=== PATIENT | male | born 1955 | race American Indian/Alaskan Native ===

== ENCOUNTER 2019-05-06 06:14 | Day surgery (SDC) | payer OTHER ==
[2019-05-06] MEDS ORDERED: ceFAZolin/STERILE WATER 2 GM/20 ML SYRINGE IV NR (07:00)
[2019-05-06] MEDS ORDERED: GENTAMICIN 40 MG/ML VIAL 2 ML IV SCH (07:30)
[2019-05-06] MEDS ORDERED: LACTATED RINGERS 1,000 ML ONE (07:44)
[2019-05-06] MEDS ORDERED: GENTAMICIN/NS 120MG/100ML 120 MG/100 ML BAG IV NR (08:00)
[2019-05-06] MEDS ORDERED: LACTATED RINGERS 1,000 ML IV SCH (08:00)
[2019-05-06] MEDS ORDERED: propofoL 200 MG/20 ML VIAL IV ONE (08:31)
[2019-05-06] MEDS ORDERED: LIDOCAINE MPF (2%) 20 MG/1 ML VIAL 5 ML ONE (08:31)
[2019-05-06] MEDS ORDERED: fentaNYL 100 MCG/2 ML INJ ONE (08:31)
[2019-05-06] MEDS ORDERED: fentaNYL 100 MCG/2 ML INJ IV PRN (08:35)
--- NOTE | 2019-05-06 08:35 | Anesthesia Day of Surgery ---
Anesthesia Day of Surgery - Day of Surgery Patient Examined: Yes Patient H&P Reviewed: Yes Patient is NPO: Yes
--- NOTE | 2019-05-06 08:35 | Anesthesia Consultation ---
Anesthesia Consult and Med Hx Date of service: 05/06/19 - Airway Anesthetic Teeth Evaluation: Good, Crowns ROM Head & Neck: Adequate Mental/Hyoid Distance: Adequate Mallampati Class: Class II Intubation Access Assessment: Probably Good - Pulmonary Exam CTA: Yes - Cardiac Exam Cardiac Exam: RRR - Pre-Operative Health Status ASA Pre-Surgery Classification: ASA1 Proposed Anesthetic Plan: General - Pulmonary Hx Smoking: No Hx Respiratory Symptoms: No Hx Sleep Apnea: No (MAGALI PRE SCREEN LOW RISK) - Cardiovascular System Hx Hypertension: No Hx Heart Attack/AMI: No Hx Percutaneous Transluminal Coronary Angioplasty (PTCA): No - Central Nervous System CVA: No - Gastrointestinal Hx Gastroesophageal Reflux Disease: No - Endocrine Hx Renal Disease: No Hx Liver Disease: No Hx Insulin Dependent Diabetes: No Hx Non-Insulin Dependent Diabetes: No Hx Thyroid Disease: No - Other Systems Hx Obesity: No - Additional Comments Anesthesia Medical History Comments: No hx anesthetic complications. Recently had tendon repair in left foot and wears boot which he removes for showers and sleeping. Normal flexion/extension at ankle without pain. Patient discussed with surgeon and appears safe for lithotomy positioning.
[2019-05-06] MEDS ORDERED: dexAMETHasone 20 MG/5 ML VIAL ONE (09:00)
[2019-05-06] MEDS ORDERED: MIDAZOLAM 2 MG/2 ML INJ IV NR (09:00)
[2019-05-06] MEDS ORDERED: ONDANSETRON 4 MG/2 ML INJ ONE (09:46)
[2019-05-06] MEDS ORDERED: WATER FOR IRRIG STERILE 2000 ML IR ONE (09:47)
--- NOTE | 2019-05-06 09:58 | Short Stay Summary ---
Short Stay Documentation Date of service: 05/06/19 Narrative H&P: 63 yr old male with BPH & psa 12 MRI prostate revealed left lesion - History H&P: obtained from office Past Medical History: other (BPH) Social history: no significant social history, - Allergies and Medications Current Medications: Allergies shellfish derived Allergy (Verified 04/26/19 11:48) Nausea Home Medications Medication Instructions Recorded Confirmed Last Taken Type Aspirin 325 mg PO PRN PRN 04/26/19 05/06/19 05/01/19 History Active Medications Cefazolin Sodium (Ancef/Sterile Water 2 Gm/20 Ml) 2 gm IV PREOP NR Stop: 05/06/19 16:00 Fentanyl (Sublimaze) 50 mcg IV Q5MIN PRN PRN Reason: Pain , Severe (7-10) Gentamicin Sulfate/Sodium Chloride (Gentamicin/Ns 120mg/100ml) 120 mg in 100 mls @ 200 mls/hr IV PREOP NR Stop: 05/06/19 16:00 Lactated Ringer's (Lactated Ringers) 1,000 mls @ 100 mls/hr IV DIRECT AUGUST Last Admin: 05/06/19 08:10 Dose: 100 mls/hr Documented by: Midazolam HCl (Versed) 2 mg IV PREOP NR Stop: 05/06/19 23:59 Last Admin: 05/06/19 08:52 Dose: 2 mg Documented by: - Physical exam General appearance: no acute distress, well-nourished Integumentary: no rash, no growths HEENT: Atraumatic, PERRLA, EOMI Lungs: Clear to auscultation Breasts: normal Heart: Regular rate, No murmurs Gastrointestinal: normal Male Genitourinary: normal Extremities: no ischemia, No edema Neurological: Normal gait - Brief post op/procedure progress note Date of procedure: 05/06/19 Pre-op diagnosis: BPH, psa 12 Post-op diagnosis: same Procedure: cysto, rpg, pus 20cc, 12 core bx & bx left lesion Anesthesia: GETA Surgeon: ARIANA BARKER Pathology: list (12 core & left lesion) Specimen disposition: to lab Condition: stable - Hospital course Hospital course: ultram & bactrim on chart - Disposition Disposition: TO HOME OR SELFCARE Short Stay Discharge Plan Follow up with: ARIANA EUCEDA MD [Primary Care Provider] - 7 Days
--- NOTE | 2019-05-06 10:27 | Operative Report ---
PREOPERATIVE DIAGNOSES: Benign prostatic hypertrophy, elevated PSA of 12. POSTOPERATIVE DIAGNOSIS: Benign prostatic hypertrophy, elevated PSA of 12. PROCEDURE: Cystoscopy, bilateral retrograde pyelograms, transrectal ultrasound (20 mL gram gland) and 12-core biopsy of prostate with left prostatic lesion. SURGEON: Toni Murillo MD ANESTHESIA: General. ESTIMATED BLOOD LOSS: Minimal. FLUIDS: Crystalloid. COMPLICATIONS: No complications. INDICATIONS: This 63-year-old gentleman has been seen in the office for several years for BPH and erectile dysfunction. He has been on Flomax. However, recently, he had an elevated PSA. Biopsy in the past was negative. Recent MRI suggested a left-sided prostatic lesion. He presents now for surgical intervention. DESCRIPTION OF PROCEDURE: The patient was taken to the operative suite, placed in a supine position. After adequate general anesthesia, placed in a dorsal lithotomy position, prepped and draped in a sterile fashion. Pancystourethroscopy was performed with 22-Micronesian Storz cystoscope, no urethral abnormalities. His prostate did display some mild trilobar obstruction. His bladder, no tumors or stones were noted. Mild trabeculation. Both ureteral orifices in normal position. Bilateral retrograde pyelograms were obtained with an 8-Micronesian Donna catheter and 8 mL of contrast. No filling defects or obstruction, right side, the patient had a bifid right collecting system. Next, using a transrectal prostate ultrasound, sagittal and transverse images were taken. The patient was noted to have a 25 gram gland. 12-core biopsy was performed without difficulty. On ultrasound, he was noted to have small hyperechoic lesion on the left side that was additional cores were taken. Rectal exam was benign. Bladder was drained. He was extubated and taken to recovery room. He will go home on Bactrim and Ultram. JOB# [id number] [facility]
[2019-05-06 10:37] VITALS: BP 105/75
--- NOTE | 2019-05-06 12:08 | Ultrasound Report ---
Ultrasound guide intraoperative HISTORY: Elevated PSA levels FINDINGS: Endorectal ultrasound guidance was provided by radiology during prostate biopsy by the urol ogist. 21 ultrasound images are presented demonstrating multiple prostate biopsies. Please correlate with the procedural report as needed. IMPRESSION: Successful ultrasound-guided prostate biopsy. Signer Name: Flash Marcus Jr, MD Signed: 05/06/2019 12:04 PM Workstation Name: [id number]
--- NOTE | 2019-05-06 12:09 | Fluoroscopy Report ---
Fluoroscopy retrograde urography HISTORY: Elevated PSA level FINDINGS: 10 seconds of fluoroscopy time was provided by radiology during retrograde urography by the urologist. 8 fluoroscopic images are presented. No filling defect or abnormal dilatation is identifi ed in either collecting system. 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 Please correlate with the procedural report as needed. Signer Name: Flash Marcus Jr, MD Signed: 05/06/2019 12:05 PM Workstation Name: [id number]
== END 2019-05-06 11:05 | disposition home or self-care (01) ==
LOC: OR 06:14
PROVIDERS: ATTEND Urology
DX: N40.0 Benign prostatic hyperplasia without lower urinary tract symptoms (principal); R97.20 Elevated prostate specific antigen [PSA]; C61 Malignant neoplasm of prostate; K21.9 Gastro-esophageal reflux disease without esophagitis; Z91.013 Allergy to seafood
CPT/HCPCS: 55700; 74420; 76872; 88305; A4217; J0690; J1100; J1580; J2250; J2405; J2704; J3010; J7120; Q9967; 76998

== ENCOUNTER 2019-05-27 07:22 | Outpatient (CLI) | payer OTHER ==
--- NOTE | 2019-05-27 08:47 | Cat Scan Report ---
CT ABDOMEN AND PELVIS WITHOUT CONTRAST HISTORY: Neoplasm prostate. COMPARISON: None TECHNIQUE: Routine abdominal and pelvic CT exam performed without contrast. Lack of intravenous cont rast limits evaluation of the vascular and solid organs.. All CT scans at this location are performed using CT dose reduction for ALARA by means of automated exposure control. FINDINGS: CT ABDOMEN: Lung Bases: Clear. Liver: Normal. Biliary: Normal gallbladder and bile ducts. Spleen: No significant abnormality. Unenlarged. Pancreas: No significant abnormality. Adrenals: No significant abnormality. Kidneys: Normal. The renal collecting systems and ureters are nondilated. Lymphatics: No lymphadenopathy. Vasculature: No significant abnormality. Bowel/Peritoneum: Nonobstructive bowel pattern. Diverticulosis without mesocolonic fat stranding. No free air. No free fluid. Normal appendix. CT PELVIC: : Normal urinary bladder. The prostate measures 4.2 x 3.5 cm. Normal seminal vesicles. The distal u reters are normal. Lymphatics: No lymphadenopathy. Osseous Structures: No suspicious bone lesions. Additional Findings: None IMPRESSION: 1. No significant abnormality. 2. No evidence of metastatic disease. Signer Name: Chuck Best MD Signed: 05/27/2019 8:43 AM Workstation Name: [id number]
--- NOTE | 2019-05-27 11:01 | Nuclear Medicine Report ---
NUCLEAR MEDICINE BONE SCAN, WHOLE BODY INDICATION: Malignant neoplasm of prostate. TECHNIQUE: 26 mCi of Tc-99m MDP were injected IV. Whole body images were obtained. COMPARISON: CT abdomen and pelvis without contrast performed earlier today. FINDINGS: Articular Structures: Uptake along the shoulders, knees, ankles and the right acetabulum is consisten t with degenerative change. Skeletal Lesions: None. Soft Tissues: Normal. Kidneys: Normal. Additional Findings: None. IMPRESSION: No scintigraphic evidence of osseous metastatic disease. Signer Name: Nito Woods MD Signed: 05/27/2019 10:57 AM Workstation Name: [id number]
== END 2019-05-27 07:23 | disposition home or self-care (01) ==
LOC: NM 07:22
PROVIDERS: ATTEND Urology
DX: C61 Malignant neoplasm of prostate (principal)
CPT/HCPCS: 74176; 78306; A9503

== ENCOUNTER 2019-07-15 05:35 | Observation (INO) | payer OTHER ==
[2019-07-04 11:44] LABS: Mean Corpuscular HGB Conc 34 % (32-34); Mean Corpuscular Volume 83 fl (84-94); Platelet Count 240 K/mm3 (140-440); Red Cell Distribution Width 12.9 % (13.2-15.2)
[2019-07-04 13:24] LABS: Alanine Aminotransferase 41 units/L (7-56); Albumin 4.2 g/dL (3.9-5); BUN/Creatinine Ratio 18; Blood Urea Nitrogen 20 mg/dL (9-20); Calcium 9.2 mg/dL (8.4-10.2); Hemolysis Index 60
--- NOTE | 2019-07-04 17:23 | Anesthesia Consultation ---
Anesthesia Consult and Med Hx Date of service: 07/15/19 - Airway Anesthetic Teeth Evaluation: Good, Crowns ROM Head & Neck: Adequate Mental/Hyoid Distance: Adequate Mallampati Class: Class I Intubation Access Assessment: Good - Pulmonary Exam CTA: Yes - Cardiac Exam Cardiac Exam: RRR - Pre-Operative Health Status ASA Pre-Surgery Classification: ASA2 Proposed Anesthetic Plan: General - Pulmonary Hx Smoking: No Hx Respiratory Symptoms: No Hx Sleep Apnea: No (MAGALI PRE SCREEN LOW RISK) - Cardiovascular System Hx Hypertension: No Hx Heart Attack/AMI: No Hx Percutaneous Transluminal Coronary Angioplasty (PTCA): No - Central Nervous System CVA: No - Gastrointestinal Hx Gastroesophageal Reflux Disease: No - Endocrine Hx Renal Disease: No Hx Liver Disease: No Hx Insulin Dependent Diabetes: No Hx Non-Insulin Dependent Diabetes: No Hx Thyroid Disease: No - Other Systems Hx Cancer: Yes (prostate ca) Hx Obesity: No - Additional Comments Anesthesia Medical History Comments: Reports intractable hiccups with prior anesthetics which responded to thorazine.
[2019-07-15] MEDS ORDERED: BACTERIOSTATIC SODIUM CHLORIDE 0.9% 30 ML VIAL INFILTRATI ONE (05:43)
[2019-07-15] MEDS ORDERED: GABAPENTIN 300 MG CAP PO NR (06:00)
[2019-07-15] MEDS ORDERED: MAGNESIUM OXIDE 400 MG TAB PO SCH (06:00)
[2019-07-15] MEDS ORDERED: LACTATED RINGERS 1,000 ML IV SCH ×2 (06:00→11:00)
[2019-07-15] MEDS ORDERED: MIDAZOLAM 2 MG/2 ML INJ IV NR (06:00)
[2019-07-15] MEDS ORDERED: CELECOXIB 200 MG CAP PO NR (06:00)
[2019-07-15] MEDS ORDERED: ceFAZolin/STERILE WATER 2 GM/20 ML SYRINGE IV NR (07:00)
[2019-07-15] MEDS ORDERED: HYDROmorphone 1 MG/1 ML INJ IV PRN (07:16)
--- NOTE | 2019-07-15 07:22 | Anesthesia Day of Surgery ---
Anesthesia Day of Surgery - Day of Surgery Patient Examined: Yes Patient H&P Reviewed: Yes Patient is NPO: Yes
[2019-07-15] MEDS ORDERED: fentaNYL 100 MCG/2 ML INJ ONE (07:30)
[2019-07-15] MEDS ORDERED: propofoL 200 MG/20 ML VIAL IV ONE (07:30)
[2019-07-15] MEDS ORDERED: ROCURONIUM 50 MG/5 ML INJ IV ONE ×2 (07:30→08:59)
[2019-07-15] MEDS ORDERED: LIDOCAINE MPF (2%) 20 MG/1 ML VIAL 5 ML ONE (07:30)
--- NOTE | 2019-07-15 07:32 | Short Stay Summary ---
Short Stay Documentation Date of service: 07/15/19 Narrative H&P: 63 yr old male with [place] 8, psa 11, bone scan & CT neg with patient - History Past Medical History: hypertension Past Surgical History: No surgical history - Allergies and Medications Current Medications: Allergies shellfish derived Allergy (Verified 04/26/19 11:48) Nausea Home Medications Medication Instructions Recorded Confirmed Last Taken Type Aspirin 81 mg PO DAILY 04/26/19 07/15/19 8 Days Ago History ~07/07/19 Active Medications Celecoxib (Celebrex) 200 mg PO PREOP NR Stop: 07/15/19 23:59 Last Admin: 07/15/19 06:20 Dose: 200 mg Documented by: Gabapentin (Gabapentin) 600 mg PO PREOP NR Stop: 07/15/19 23:59 Last Admin: 07/15/19 06:20 Dose: 600 mg Documented by: Hydromorphone HCl (Dilaudid) 0.5 mg IV Q10MIN PRN PRN Reason: Pain , Severe (7-10) Stop: 07/15/19 22:00 Lactated Ringer's (Lactated Ringers) 1,000 mls @ 100 mls/hr IV DIRECT AUGUST Stop: 07/15/19 23:59 Last Admin: 07/15/19 06:35 Dose: 100 mls/hr Documented by: Magnesium Oxide (Mag-Ox) 400 mg PO PREOP AUGUST Last Admin: 07/15/19 06:20 Dose: 400 mg Documented by: Midazolam HCl (Versed) 2 mg IV PREOP NR Stop: 07/15/19 23:59 Last Admin: 07/15/19 06:50 Dose: 2 mg Documented by: - Physical exam General appearance: no acute distress, well-nourished Integumentary: no abnormal pigmentation HEENT: Atraumatic, PERRLA Lungs: Clear to auscultation, Normal air movement Heart: Regular rate, No murmurs Gastrointestinal: normal Male Genitourinary: normal Extremities: no ischemia, No edema Neurological: Normal gait - Brief post op/procedure progress note Date of procedure: 07/15/19 Pre-op diagnosis: prostate cancer, joyce 8 Post-op diagnosis: same Procedure: robotic prostatectomy, bladder suspension Anesthesia: GETA Surgeon: ARIANA BARKER Estimated blood loss: other (150cc) Pathology: list (prostate) Specimen disposition: to lab Condition: stable - Hospital course Hospital course: post op info on chart cipro,norco,ultram,thorazine script on chart no issues overnight steve removed home with kennedy - Disposition Condition at discharge: Stable Short Stay Discharge Plan Follow up with: ARIANA EUCEDA MD [Primary Care Provider] - 7 Days
[2019-07-15] MEDS ORDERED: HYDROmorphone 1 MG/1 ML INJ ONE (07:33)
[2019-07-15] MEDS ORDERED: CITRIC ACID-SOD CITRATE 500 ML IV ONE (07:48)
[2019-07-15] MEDS ORDERED: BUPIVACAINE-EPINEPHRINE/PF 0.5%-1:200,000 (30 ML) VIAL INFILTRATI ONE ×2 (07:48→10:04)
[2019-07-15] MEDS ORDERED: CALCIUM CHLORIDE 1,000 MG/10 ML SYRINGE IV ONE (07:48)
[2019-07-15] MEDS ORDERED: THROMBIN (RECOMBINANT) 5,000 UNIT VIAL TP ONE (07:48)
[2019-07-15] MEDS ORDERED: METHYLENE BLUE 50 MG/10 ML AMP ONE (07:48)
[2019-07-15] MEDS ORDERED: ePHEDrine SULFATE 50 MG/1 ML INJ ONE (08:25)
[2019-07-15] MEDS ORDERED: SODIUM CHLORIDE P/F VIAL 10 ML 10 ML ONE (08:26)
[2019-07-15] MEDS ORDERED: LACTATED RINGERS 1,000 ML ONE (08:59)
[2019-07-15] MEDS ORDERED: ONDANSETRON 4 MG/2 ML INJ ONE (09:45)
[2019-07-15] MEDS ORDERED: NEOSTIGMINE 10MG/10 ML INJ MDV ONE (09:45)
[2019-07-15] MEDS ORDERED: METOCLOPRAMIDE 10 MG/2 ML INJ ONE (09:45)
[2019-07-15] MEDS ORDERED: GLYCOPYRROLATE 0.4 MG/2 ML INJ ONE ×2 (09:45→10:00)
[2019-07-15] MEDS ORDERED: dexAMETHasone 20 MG/5 ML VIAL ONE (09:45)
[2019-07-15] MEDS ORDERED: KETOROLAC 30 MG/1 ML INJ ONE (09:56)
[2019-07-15] MEDS ORDERED: WATER FOR IRRIG STERILE 1,500 ML BOTTLE IR ONE (10:05)
[2019-07-15] MEDS ORDERED: SODIUM CHLORIDE 0.9% IRRIG SOLN 2000 ML IR ONE (10:05)
[2019-07-15] MEDS ORDERED: MORPHINE 2 MG/1 ML INJ IV PRN (10:07)
[2019-07-15] MEDS ORDERED: HYDROcodone/ACETAMINOPHEN 5-325 MG TAB PO PRN (10:07)
[2019-07-15] MEDS ORDERED: ONDANSETRON 4 MG/2 ML INJ IV PRN (10:30)
--- NOTE | 2019-07-15 10:47 | Operative Report ---
PREOPERATIVE DIAGNOSIS: Prostate cancer, Ryan 8, PSA 11. POSTOPERATIVE DIAGNOSIS: Prostate cancer, Ryan 8, PSA 11. PROCEDURE: Robotic-assisted laparoscopic prostatectomy, urethral suspension. SURGEON: Toni Murillo MD ANESTHESIA: General. SIGNAL CONSTRUCTOR: Hailey Jackman. ESTIMATED BLOOD LOSS: 150 mL. FLUIDS: Crystalloid. COMPLICATIONS: No complications. INDICATIONS: This patient is a 63-year-old gentleman referred by Dr. Mirlande Jackson for evaluation of an elevated PSA of 11. He underwent transrectal ultrasound and biopsy of his prostate. He was found to have Ryan 8 adenocarcinoma of the prostate in the 11 of 14 cores. Bone scan, CT scan were negative. Discussed options. He and his agreed to proceed with surgical intervention. DESCRIPTION OF PROCEDURE: The patient was taken to the operative suite, placed in a supine position. After adequate general anesthesia, placed in a modified dorsal lithotomy position, prepped and draped in a sterile fashion. Yu catheter was placed on the operative field. A 1 cm supraumbilical incision was made with Bovie. Towel clips were placed. Anterior traction was performed. Veress needle was used for drop test, which was negative. Opening pressure was 2 cm of water. Insufflation to 15 cm of water was performed without difficulty. The pubic symphysis was marked in the midline, 15 cm cephalad to pubic symphysis was marked, he had a narrow pelvis and additional 8 cm lateral and another 8 cm lateral were marked for the 8 mm robotic ports. On the right side, a 10 mm helper port and a 5 mm helper port were marked. A 0-degree lens was used to enter the abdomen in supraumbilical incision. No intra-abdominal injury could be appreciated. No signs of metastasis was noted. The other ports were placed under direct vision without difficulty. The patient was then placed in exaggerated dorsal lithotomy position. Robotic cart was docked between the legs without difficulty. Next, the identification of the second arch posterior to the prostate and bladder was scored exposing the seminal vesicles and vas deferens. They were dissected out without difficulty. Dissection to the apex of the prostate was performed without difficulty. Vas deferens was transected bilaterally. Copious irrigation was performed. Adequate hemostasis achieved. Next, attention was taken to the anterior abdominal wall, lateral to the lateral umbilical ligament, was scored and exposing the pubic rami bilaterally, at the umbilicus, the bladder was peeled off and dropped. Dorsal vein complex was identified and was controlled with a 60 mm vascular stapler. Endopelvic fascia was opened bilaterally without difficulty and dissection to the bladder neck of the prostate. It was difficult to see the neurovascular bundle with a [place] 8 prostate cancer in 11 of 14 cores. I did not want to get too close to the prostate to compromise his cancer surgery. Bladder neck was opened anteriorly without difficulty, exposing the Yu catheter. Yu catheter was pulled anteriorly and used for traction. Posterior bladder neck was then transected. The ureteral orifices could be appreciated bilaterally. Posterior bladder neck was transected exposing the seminal vesicles and vas deferens. They were pulled anteriorly. A gentle dissection of the lateral pedicles were performed and then there was some tedious bleeding, a 60 mm vascular stapler was used to control the lateral pedicle bilaterally. Dissection was then taken to the apex of the prostate posteriorly. Attention was then taken to the anterior part of the apex of the prostate. This area was transected exposing the Yu. It was pulled back to the urethra. In the urethra, the apex of the prostate was completely transected. Prostate was dissected free from the rectum without difficulty and placed in the EndoCatch bag. Copious irrigation was performed. Adequate hemostasis achieved. No rectal injury could be appreciated. 12 o'clock helper stitch was placed at the bladder neck. Three arm was used to secure the bladder neck and a 7 o'clock and 5 o'clock 2-0 Vicryl interrupted stitch was used to taper down the bladder neck to the size of 18-Sinhala Yu catheter. Double armed V-Loc was placed at the 6 o'clock position of the bladder neck; in the corresponding aspect of the urethra, a running stitch was placed. A new 18-Sinhala Yu catheter was placed in the urethra and bladder without difficulty. Anastomotic stitch was cinched down. 15 mL of sterile water in the balloon, irrigated, no leak, no clots. The double armed V-Loc stitch was then placed in the posterior aspect of the pubic rami as a urethral bladder suspension stitch was cut and the needles were removed. Copious irrigation was performed. Adequate hemostasis achieved. Platelet-rich plasma was injected around the urethra as well as platelet-poor plasma and a platelet membrane. 10 mm Ugo-Killian drain was brought out through the left sided #2 port, tied into position and the skin with 2-0 silk. All the ports were removed under direct vision. Robotic cart was undocked. The patient was placed in a supine position. Supraumbilical incision was extended to remove the prostate in the EndoCatch bag. The rectus fascia in the midline was closed with 0 Vicryl in a [id number] fashion. Skin was closed with 3-0 Monocryl in interrupted fashion. The Yu catheter site port was folded over and tied with 0 silk in interrupted fashion. The patient tolerated the procedure well. He was extubated to be observed in the recovery room and then on the floor for overnight. He will go home on Cipro, Ultram, [place], and Thorazine. He has a history of hiccups postanesthesia. Hailey Jackman was present to assist at the bedside throughout procedure. JOB# [id number] ALAN/DONYA TURCIOS
[2019-07-15] MEDS ORDERED: NALOXONE 0.4 MG/1 ML INJ IV PRN (11:00)
--- NOTE | 2019-07-15 12:08 | Post Anesthesia Evaluation ---
- Post Anesthesia Evaluation Patient Participated: Yes Airway Patent: Yes Stable Respiratory Function: Yes Nausea/Vomiting: No Temp > 96.8F: Yes Pain Manageable: Yes Adequeate Hydration: Yes Anesthesia Complications: No
[2019-07-15] MEDS ORDERED: chlorproMAZINE 25 MG in SODIUM CHLORIDE 0.9% 50 ML IV PRN (14:06)
[2019-07-15] MEDS ORDERED: ceFAZolin/NS 1 GM/50 ML 1 GM/50 ML BAG IV SCH (16:00)
[2019-07-15] MEDS ORDERED: ZOLPIDEM 5 MG TAB PO PRN (22:00)
[2019-07-16 04:12] LABS: Hematocrit 37.4 % (35.5-45.6); Hemoglobin 12.5 gm/dl (11.8-15.2); Mean Corpuscular HGB Conc 33 % (32-34); Mean Corpuscular Volume 85 fl (84-94); Platelet Count 203 K/mm3 (140-440); Red Blood Count 4.43 M/mm3 (3.65-5.03); Red Cell Distribution Width 13.3 % (13.2-15.2)
[2019-07-16 04:33] LABS: BUN/Creatinine Ratio 20; Blood Urea Nitrogen 24 mg/dL (9-20); Calcium 8.5 mg/dL (8.4-10.2); Hemolysis Index 3
[2019-07-16 05:23] LABS: Basophils % (Manual) 0 % (0.0-1.8); Eosinophils % (Manual) 0 % (0.0-4.3); Platelet Estimate Consistent w Auto; RBC Morphology Normal; Total Cells Counted 100
[2019-07-16 09:16] VITALS: BP 115/58
== END 2019-07-16 12:10 | disposition home or self-care (01) ==
LOC: OR 05:35 → 4A 10:07
PROVIDERS: ADMIT Urology; ATTEND Urology
DX: C61 Malignant neoplasm of prostate (principal); I10 Essential (primary) hypertension; Z79.899 Other long term (current) drug therapy; Z88.6 Allergy status to analgesic agent
CPT/HCPCS: 36415; 55866; 80048; 80053; 85007; 85025; 85027; 86850; 86900; 86901; 88309; 96365; 96375; A4217; G0378; J0690; J1100; J1170; J1885; J2250; J2405; J2704; J2710; J2765; J3010; J3230; J7120; S2900; 88341; 88342; Q9968

== ENCOUNTER 2020-11-04 08:09 | Outpatient (CLI) | payer OTHER ==
--- NOTE | 2020-11-04 09:21 | Cat Scan Report ---
CT ABDOMEN AND PELVIS WITHOUT CONTRAST INDICATION / CLINICAL INFORMATION: MALIGNANT NEOPLASM OF PROSTATE. TECHNIQUE: Axial CT images were obtained through the abdomen and pelvis without IV contrast. All CT scans at this location are performed using CT dose reduction for ALARA by means of automated exposure control. COMPARISON: 05/27/2019 FINDINGS: LOWER CHEST: No significant abnormality LIVER: No significant abnormality GALLBLADDER/BILIARY TREE: No significant abnormality PANCREAS: No significant abnormality SPLEEN: No significant abnormality ADRENALS: No significant abnormality KIDNEYS / URETER: No significant abnormality URINARY BLADDER: Bladder is partially decompressed, though grossly unremarkable. REPRODUCTIVE ORGANS: Prostate is absent. Penile prosthesis with reservoir in the right lower abdomina l wall. STOMACH / BOWEL: No significant abnormality. The appendix is normal in caliber. LYMPH NODES: No significant adenopathy. VASCULATURE: No significant abnormality. OTHER: No free air, free fluid, or focal fluid collection is identified. SKELETAL SYSTEM: No suspicious bony lesions. L2 pars defects and retrolisthesis of L2 on L3. No acute osseous findings. IMPRESSION: No acute abnormality or significant interval change. No evidence of metastatic disease. Signer Name: Doyle Jimenez MD Signed: 11/04/2020 9:17 AM Workstation Name: [id number]
--- NOTE | 2020-11-04 11:59 | Nuclear Medicine Report ---
NUCLEAR MEDICINE BONE SCAN, WHOLE BODY INDICATION: MALIGNANT NEOPLASM OF PROSTATE. Restaging exam TECHNIQUE: 26.1 mCi of Tc-99m MDP were injected IV. Whole body images were obtained. COMPARISON: Bone scan images from 05/27/[address] abdomen/pelvis from today. FINDINGS: Skeletal Structures/Lesions: No metastatic disease identified. Soft Tissues: Normal. Kidneys: Normal, symmetric activity. Additional Findings: None. IMPRESSION: 1. No metastatic disease identified. Signer Name: Dannie Del Rio MD Signed: 11/04/2020 11:55 AM Workstation Name: [id number]
== END 2020-11-04 08:10 | disposition home or self-care (01) ==
LOC: NM 08:09
PROVIDERS: ATTEND Urology
DX: C61 Malignant neoplasm of prostate (principal)
CPT/HCPCS: 74176; 78306; A9503